=== PATIENT | female | born 1990 | race Caucasian/White ===

== ENCOUNTER 2016-08-14 07:04 | Day surgery (SDC) | payer BC ==
--- NOTE | ~2016-08-14 | OP ---
Record Of Operation [facility] [address] [place]. [address] NAME: RODOLFO LOVE : 89 STATUS : REG [facility] PAT#: [id number] AGE: 26 ADM/REG DATE : 08/14/16 MR#: [id number] REPORT SERV DATE: 08/16/16 DICTATED BY: FORREST MURILLO DATE: 08/16/16 REPORT STATUS : Draft TRANSCRIBED BY: MODL DATE: 08/16/16 DATE OF PROCEDURE: 08/14/2016 PREOPERATIVE DIAGNOSES: Abnormal uterine bleeding and endometrial polyp. POSTOPERATIVE DIAGNOSES: Abnormal uterine bleeding and endometrial polyp. PROCEDURES: 1. Hysteroscopy. 2. Dilation and curettage with removal of endometrial polyp. CPT code 60395. SURGEON: Forrest Murillo MD. ANESTHESIA: General. ESTIMATED BLOOD LOSS: Less than 10 mL. CRYSTALLOID: 400 mL. DRAINS: None. FINDINGS: Hypertrophic endometrium with polyp noted in the left upper cornual area. This was removed with polyp forceps. No evidence of neoplastic process. PATHOLOGY: 1. Endometrial curettings. 2. Endometrial polyp. COMPLICATIONS: None. POSTOPERATIVE PLAN: Extubated to PACU. PROCEDURE IN DETAIL: After informed consent was signed, the patient was taken to the operating room and placed in dorsal supine position, where adequate general anesthesia was administered. She was then placed in dorsal lithotomy position with Joe stirrups, and prepped and draped in the usual fashion. The cervix was grasped and the cervical canal was dilated, and the hysteroscope was then placed through the endocervical canal into the endometrial cavity and dilated with appropriate media. Findings as above were noted. The hysteroscope was then removed and the cervix was dilated further. Using polyp forceps, the polyp in the left upper cornual region was removed, and sent for pathology. Gentle sharp curettings were then performed. The remaining endometrial cavity to rule out neoplastic process. Excellent hemostasis was noted. The patient was placed back in dorsal supine position, awakened, extubated, and sent to the PACU in stable condition. Record Of Operation [facility] [address] [place]. [address] NAME: RODOLFO LOVE : 89 STATUS : REG [facility] PAT#: [id number] AGE: 26 ADM/REG DATE : 08/14/16 MR#: [id number] REPORT SERV DATE: 08/16/16 DICTATED BY: FORREST MURILLO DATE: 08/16/16 REPORT STATUS : Draft TRANSCRIBED BY: MODL DATE: 08/16/16 TB/MAYRA Forrest Murillo MD / [id number] CC: MD FLAVIO Santos
[~2016-08-14 07:04] MED LIST: ATV1 PO; BL FLAX SEED1000 MG PO; CELEXA40 MG PO; D 5000 PO; LIPOTRIAD1 CAP PO; RECLIPSEN PO; XANAX1 MG PO
[2016-08-14 07:57] LABS: ASCORBIC ACID (UR NOT ORDER) NEG (NEG); BILIRUBIN, URINE NEGATIVE (NEG); KETONE, URINE TRACE MG/DL (NEG); LEUKOCYTE ESTERASE(NOT OR NEG (NEG); WBC (NOT ORDERED) (RFLEX) 14 (0-5)
[2016-08-14 08:10] LABS: BASOPHILS 0.5 %; BASOPHILS ABSOLUTE 0.03 10/3/uL (0.0-0.16); CALCIUM, SERUM 8.7 MG/DL (8.5-10.4); CHLORIDE, SERUM 106 MMOL/L (96-112); CO2 (CARBON DIOXIDE) 23 MMOL/L (24-34); CREATININE 1.03 MG/DL (0.55-1.02); EOSINOPHILS 3.7 %; EOSINOPHILS ABSOLUTE 0.23 10/3/uL (0.0-0.53); GFR AFRICAN AMERICAN 88 ML/MIN (>=60); GFR NON AFRICAN AMERICAN 76 ML/MIN (>=60); HEMATOCRIT 39.2 % (36.0-48.0); HEMOGLOBIN 13.6 g/dL (12.0-16.0); IMMATURE GRANULOCYTES 0.3 %; IMMATURE GRANULOCYTES ABSOLUTE 0.02 10/3/uL (0.0-0.11); LYMPHOCYTES 24.7 %; LYMPHOCYTES ABSOLUTE 1.53 10/3/uL (0.67-4.30); MANUAL DIFF NO %; MEAN CORPUS HGB CONC 34.7 g/dL (32.0-36.0); MEAN CORPUSCULAR HEMOGLOB 29.8 pg (26.0-34.0); MEAN CORPUSCULAR VOLUME 85.8 fL (80-100); MEAN PLATELET VOLUME 10.5 fL (9.2-13.0); MONOCYTES 11.3 %; NEUTROPHILS 59.5 %; NEUTROPHILS ABSOLUTE 3.68 10/3/uL (2.02-8.40); PLATELET COUNT 211 10/3/uL (150-400); RED CELL COUNT 4.57 10/6/uL (4.0-5.6); SODIUM, SERUM 142 MMOL/L (135-148); WHITE BLOOD CELLS 6.2 10/3/uL (4.5-10.5)
[2016-08-14 08:11] LABS: BUN (BLOOD UREA NITROGEN) 8 MG/DL (6-23); GLUCOSE, SERUM 107 MG/DL (60-99); POTASSIUM, SERUM 3.2 MMOL/L (3.5-5.3)
== END 2016-08-14 23:59 | disposition home or self-care (01) ==
LOC: SDC 07:04
PROVIDERS: Obstetrics & Gynecology Gynecology
PROC: 0UDB8ZX Extraction of Endometrium, Via Natural or Artificial Opening Endoscopic, Diagnostic (ICD-10-PCS; principal; 2016-08-14 07:45)
DX: N84.0 Polyp of corpus uteri (principal); F41.9 Anxiety disorder, unspecified; F32.9 Major depressive disorder, single episode, unspecified; I10 Essential (primary) hypertension; E66.01 Morbid (severe) obesity due to excess calories; F17.210 Nicotine dependence, cigarettes, uncomplicated; Z90.89 Acquired absence of other organs; Z98.890 Other specified postprocedural states; Z79.899 Other long term (current) drug therapy; Z90.49 Acquired absence of other specified parts of digestive tract
CPT/HCPCS: 80048; 81001; 84703; 85025; 88305; 93005; A9270-GY; J0694; J1885; J2250; J2405; J3010